=== PATIENT | male | born 1955 | race Caucasian/White ===

== ENCOUNTER 2016-05-21 15:36 | Emergency (ER) | payer MEDICAID ==
--- NOTE | 2016-05-21 15:57 | EDPHY ---
H & P Time Seen by Provider: 05/21/16 15:49 HPI/ROS: Chief complaint. Cough, shortness of breath HPI. 61-year-old male with cough shortness of breath and subjective fever for 1 week. Nonproductive cough. He has a history of COPD and this is somewhat similar. The patient also complains of abscess on his left upper arm as well as his right thigh that have also been present for several days. The 1 on the right thigh is now draining. Otherwise denies chest pain. Patient is IV drug abuser ROS Constitutional. Subjective fever Eyes. no problems with vision ENT. no sore throat, no nasal drainage Cardiovascular. no chest pain Respiratory. Cough and shortness of breath Abdominal. no abdominal pain, no nausea/vomiting, no diarrhea . no problems urinating MS. no calf pain/swelling, no neck/back pain, no joint pain Skin. Skin abscess Lymph. no swollen glands Neuro. no headache, no dizziness, no difficulty walking or with speech Past Medical/Surgical History: Past medical history significant for PE, schizoaffective disorder, COPD with chronic O2, anxiety, hepatitis-C, alcoholism Social History: Single, daily smoker, no alcohol Smoking Status: Light smoker Physical Exam: General Appearance: Alert well-developed male moderate distress vital signs are stable Eyes: Pupils equal and round no pallor or injection. ENT, Mouth: Mucous membranes are moist. Respiratory: Mild inspiratory expiratory rhonchi Cardiovascular: Regular rate and rhythm with tachycardia Gastrointestinal: Abdomen is soft and nontender, no masses, bowel sounds normal. Neurological: Awake and alert, sensory and motor exams grossly normal. Skin: Warm and dry, no rashes. Musculoskeletal: Neck is supple nontender. Extremities abscess on the left upper arm Abscess on the right thigh with surrounding erythema and it is draining purulent discharge Psychiatric: Patient is oriented X 3, there is no agitation. Constitutional: Initial Vital Signs Temperature (C) 36.6 C 05/21/16 15:40 Heart Rate 110 H 05/21/16 15:40 Respiratory Rate 20 05/21/16 15:40 Blood Pressure 138/84 H 05/21/16 15:40 O2 Sat (%) 98 05/21/16 15:40 O2 Delivery Mode Nasal Cannula O2 (L/minute) 4.5 Allergies/Adverse Reactions: No Known Allergies Allergy (Verified 01/17/16 16:48) Home Medications: Medication Instructions Recorded Albuterol [Proventil Inhaler HFA 1 - 2 puffs IH Q4H PRN 11/09/15 (*)] Fluticasone/Salmeter 250/50Mcg 1 puffs IH BID 11/09/15 [Advair 250/50 (*)] Furosemide [Lasix 20 MG (*)] 20 mg PO DAILY 11/09/15 QUEtiapine FUMARATE [Seroquel 200 400 mg PO BID 11/09/15 mg (*)] clonazePAM [Klonopin (*)] 0.5 mg PO BID 11/09/15 Acetaminophen [Tylenol 325mg (*)] 650 mg PO Q6 PRN #0 tab 11/19/15 LORazepam [Ativan (*)] 0.5 mg PO Q6 PRN #10 tab 11/19/15 Multivitamins [Multivitamin (*)] 1 each PO DAILY #0 tab 11/19/15 traZODone [traZODONE 100MG (*)] 200 mg PO HS #20 tab 11/19/15 Acetaminophen [Tylenol 325mg (*)] 650 mg PO Q4 PRN #0 tab 12/12/15 Pantoprazole Sodium [Protonix 40mg 40 mg PO BID #30 tab 12/12/15 (*)] chlordiazePOXIDE [Librium 10 mg 10 mg PO TID #6 cap 12/12/15 (RX)] Sulfamethox/Tmp 800/160 mg 1 tab PO BID #14 tab 05/21/16 [Bactrim Ds] clonIDINE [Catapres (*)] 0.2 mg PO TID #10 tab 05/21/16 Medical Decision Making - Diagnostics Imaging: Chest x-ray shows COPD but no evidence of pneumonia Procedures: IV normal saline, monitor I and D of abscess in the left upper arm. Sterile prep. 1% lidocaine with epinephrine infiltrated. Incision and drainage by me with a 11. Blade. The cavity is probed to break up loculations and irrigated with saline. Patient tolerates the procedure well ED Course/Re-evaluation: Due to multiple intravenous access attempts that were unsuccessful the patient is sent for a PICC line Re-evaluation at 7:00 p.m. patient is stable. He and I discussed imaging and lab results. We discussed treatment plan including criteria for return importance of follow-up and further evaluation. He expresses understanding and agreement. The patient asked if we had any medication to help with opiate withdrawal. I told him I would prescribed medication. I also asked him to call [facility] tomorrow to arrange follow-up in the next 2-3 days Differential Diagnosis: Skin abscesses secondary to IVDA. I considered pneumonia, sepsis. The patient has been ill for several days is out of the window for any treatment for influenza - Data Points Laboratory Results: Laboratory Results 05/21/16 18:00 05/21/16 18:00 05/21/16 18:00 WBC 10.72 H 10^3/uL (3.80-9.50) RBC 5.00 10^6/uL (4.40-6.38) Hgb 16.2 g/dL (13.7-17.5) Hct 47.4 % (40.0-51.0) MCV 94.8 fL (81.5-99.8) MCH 32.4 pg (27.9-34.1) MCHC 34.2 g/dL (32.4-36.7) RDW 12.2 % (11.5-15.2) Plt Count 195 10^3/uL (150-400) MPV 10.9 fL (8.7-11.7) Neut % (Auto) 77.5 H % (39.3-74.2) Lymph % (Auto) 13.7 L % (15.0-45.0) [place] % (Auto) 7.8 % (4.5-13.0) Eos % (Auto) 0.4 L % (0.6-7.6) Baso % (Auto) 0.3 % (0.3-1.7) Nucleat RBC Rel Count 0.0 % (0.0-0.2) Absolute Neuts (auto) 8.31 H 10^3/uL (1.70-6.50) Absolute Lymphs (auto) 1.47 10^3/uL (1.00-3.00) Absolute Monos (auto) 0.84 H 10^3/uL (0.30-0.80) Absolute Eos (auto) 0.04 10^3/uL (0.03-0.40) Absolute Basos (auto) 0.03 10^3/uL (0.02-0.10) Absolute Nucleated RBC 0.00 10^3/uL (0-0.01) Immature Gran % 0.3 % (0.0-1.1) Immature Gran # 0.03 10^3/uL (0.00-0.10) PT 13.5 SEC (12.0-15.0) INR 1.04 (0.83-1.16) D-Dimer < 0.27 ug/mLFEU (0.00-0.50) Sodium 134 mEq/L (134-144) Potassium 3.8 mEq/L (3.5-5.2) Chloride 99 mEq/L (97-110) Carbon Dioxide 30 mEq/l (22-31) Anion Gap 5 mEq/L (8-16) BUN 12 mg/dL (7-23) Creatinine 0.8 mg/dL (0.7-1.3) Estimated GFR > 60 Glucose 113 H mg/dL (70-100) Calcium 8.5 mg/dL (8.5-10.4) Troponin I < 0.012 ng/mL (0-0.034) NT-Pro-B Natriuret Pep 214 H pg/mL (0-125) Medications Given: Discontinued Medications Albuterol/Ipratropium (Duoneb) 3 ml IH EDNOW ONE Stop: 05/21/16 16:06 Last Admin: 05/21/16 16:16 Dose: 3 ml Departure - Departure Disposition: Home, Routine, Self-Care Clinical Impression: Abscess, COPD (chronic obstructive pulmonary disease) Condition: Good Instructions: Abscess (ED) Additional Instructions: Keep abscess areas clean and dry. You may shower. Clonidine to help with opiate withdrawal but it is important that you do not use further opiates. Bactrim as antibiotic. Return for worsening symptoms. Recheck at [facility] in 2-3 days without fail. Call them tomorrow to arrange follow-up appointment Referrals: Melissa Villareal [Primary Care Provider] - As per Instructions [facility] [Outside] - 1-2 days without fail Prescriptions: Sulfamethox/Tmp 800/160 mg [Bactrim Ds] 1 tab PO BID #14 tab clonIDINE [Catapres (*)] 0.2 mg PO TID #10 tab
[2016-05-21] MEDS ORDERED: IPRATROPIUM/ALBUTEROL 3 ML DEYVIAL IH ONE (16:05)
--- NOTE | 2016-05-21 16:50 | CPEKG ---
Heart Rate: 101 RR Interval: 594 P-R Interval: 168 QRSD Interval: 92 QT Interval: 336 QTC Interval: 436 P [place]: 71 QRS [place]: 146 T Wave [place]: 55 EKG Severity - ABNORMAL ECG - EKG Impression: SINUS TACHYCARDIA EKG Impression: LEFT POSTERIOR FASCICULAR BLOCK EKG Impression: LOW VOLTAGE WITH RIGHT AXIS DEVIATION Electronically Signed By: Noah Tan 21-May-2016 20:52:48
[2016-05-21] MEDS ORDERED: ALTEPLASE 2 MG VIAL IVP PRN (16:51)
[2016-05-21 18:11] LABS: % IMMATURE GRANULYOCYTES 0.3 % (0.0-1.1); ABSOLUTE IMMATURE GRANULOCYTES 0.03 10^3/uL (0.00-0.10); ADD DIFF? NO; ADD MORPH? NO; ADD SCAN? NO; ATYPICAL LYMPHOCYTE FLAG 0 (0-99); FRAGMENT RBC FLAG 0 (0-99); HEMATOCRIT 47.4 % (40.0-51.0); HEMOGLOBIN 16.2 g/dL (13.7-17.5); LEFT SHIFT FLG 0 (0-99); LIPEMIA HEMOLYSIS FLAG 90 (0-99); MEAN CELL HEMOGLOBIN 32.4 pg (27.9-34.1); MEAN CELL HEMOGLOBIN CONCENTR. 34.2 g/dL (32.4-36.7); MEAN CELL VOLUME 94.8 fL (81.5-99.8); MEAN PLATELET VOLUME 10.9 fL (8.7-11.7); PLATELET CLUMPS FLAG 0 (0-99); PLATELET COUNT 195 10^3/uL (150-400); RED CELL DISTRIBUTION WIDTH 12.2 % (11.5-15.2)
[2016-05-21 18:18] LABS: INR 1.04 (0.83-1.16); PROTIME(PATIENT) 13.5 SEC (12.0-15.0)
--- NOTE | 2016-05-21 18:23 | IR ---
Imaging-Guided Peripherally Inserted Central Catheter History: Central line needed for multiple medications. This is patient's third central line. Prophylactic Antibiotic: Cefazolin was not ordered and administered for antimicrobial prophylaxis be cause it was not medically necessary for this procedure. VTE Prophylaxis: There is not an order for VTE prophylaxis to be given within 24 hours after procedu re end time because it was not medically necessary for this procedure. Crosscutting Measure: Patient's current list of medications including all known prescriptions, over- the-counters, herbals, and vitamin/mineral/dietary supplements are reviewed. Medications' name, dosa ge, frequency, and route of administration are confirmed. Technique: Following informed consent, the right arm was prepped and draped in sterile fashion. 1% X ylocaine was used for local anesthetic. All elements of maximal sterile barrier technique including cap, mask, sterile gown, sterile gloves, large sterile sheet, hand hygiene, and 2% chlorhexidine for cutaneous antisepsis, followed. Ultrasound evaluation of potential access site was performed. After successfully identifying a patent vessel, ultrasound guidance was used to puncture the vein. A permanent recording was created for the patient's record. Ultrasound transducer was placed in sterile sleeve and used for real-time imaging guidance over steri le gel to enter the brachial vein. 0.018 measuring wire was passed centrally under fluoroscopic contr ol. A skin salvador with scalpel blade was followed by removing the access needle. A 4 Surinamese peel-away s stuart was followed by a 4 Surinamese single-lumen central catheter, trimmed to 42 cm length. The tip of t he catheter was positioned centrally and the guidewire removed. A single fluoroscopic spot image was obtained in inspiration. The hub of the catheter was fixed to the skin using a sterile StatLock adhes gisselle device, and a sterile dressing was applied. The catheter was irrigated. Findings: The tip of the central catheter terminates at the junction of the superior vena cava and t he right atrium. Fluoroscopy: 0.2 minutes, 1 image. Impression: 4 [place]inamese single lumen peripherally inserted central catheter is ready to use. Please note that this patient does not have any other veins in the right upper extremity other than t his brachial vein at this time. Multiple basilic branches were accessed at various levels, without ramírez ccess. This brachial vein is directly behind the nerve sheath complex and was difficult to get around . If at all possible, this central line should be left in place.
[2016-05-21 18:27] LABS: ANION GAP 5 mEq/L (8-16); CALCIUM 8.5 mg/dL (8.5-10.4); CARBON DIOXIDE 30 mEq/l (22-31); CHLORIDE 99 mEq/L (97-110); CREATININE 0.8 mg/dL (0.7-1.3); GLOMERULAR FILTRATION RATE > 60; GLUCOSE 113 mg/dL (70-100); POTASSIUM 3.8 mEq/L (3.5-5.2); SODIUM 134 mEq/L (134-144)
[2016-05-21 18:37] LABS: TROPONIN I < 0.012 ng/mL (0-0.034)
--- NOTE | 2016-05-21 18:37 | DX ---
PA and lateral chest History: Dyspnea. Comparison: AP and lateral chest January 17, 2016, CT angiogram chest November 13, 2015. Findings: Right PICC tip is at the cavoatrial junction. There is stable bibasilar scarring/atelectasi s, left greater than right. There is no pneumothorax or pleural effusion. Heart size is normal. The b ones are stable, including a mild compression fracture at T12. Impression: Stable bibasilar scarring/atelectasis with no acute findings.
[2016-05-21 18:42] VITALS: BP 122/73; TEMP 98.1
[2016-05-21 19:32] VITALS: PULSE 98; RESP 20; O2SAT 95
== END 2016-05-21 19:38 | disposition home or self-care (01) ==
PROC: 0J9F0ZZ Drainage of Left Upper Arm Subcutaneous Tissue and Fascia, Open Approach (ICD-10-PCS; principal; 2016-05-21)
PROC: 02HV33Z Insertion of Infusion Device into Superior Vena Cava, Percutaneous Approach (ICD-10-PCS; 2016-05-21)
DX: J44.9 Chronic obstructive pulmonary disease, unspecified (principal); L02.414 Cutaneous abscess of left upper limb; F17.200 Nicotine dependence, unspecified, uncomplicated
CPT/HCPCS: 10061; 71020; 77001; 93005; 99285; C1751

== ENCOUNTER 2016-06-23 16:52 | Emergency (ER) | payer MEDICAID ==
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
[2016-06-23 17:16] VITALS: BP 147/101; PULSE 75; RESP 24; TEMP 97.7; O2SAT 93
--- NOTE | 2016-06-23 17:28 | CPEKG ---
Heart Rate: 81 RR Interval: 741 P-R Interval: 164 QRSD Interval: 92 QT Interval: 384 QTC Interval: 446 P [place]: 74 QRS [place]: 130 T Wave [place]: 35 EKG Severity - ABNORMAL ECG - EKG Impression: SINUS RHYTHM EKG Impression: LEFT POSTERIOR FASCICULAR BLOCK EKG Impression: PROBABLE INFERIOR INFARCT, OLD Preliminary Awaiting MD Review
== END 2016-06-23 18:54 | disposition home or self-care (01) ==
LOC: CED 16:52
DX: M19.012 Primary osteoarthritis, left shoulder (principal); J44.9 Chronic obstructive pulmonary disease, unspecified; F17.210 Nicotine dependence, cigarettes, uncomplicated; B19.20 Unspecified viral hepatitis C without hepatic coma; Z86.711 Personal history of pulmonary embolism
CPT/HCPCS: 73030-PO; 93010-PO; 99214-PO; G0463-PO

== ENCOUNTER 2017-06-30 20:58 | Emergency (ER) | payer MEDICAID ==
[2017-06-30 21:25] VITALS: TEMP 98.1
--- NOTE | 2017-06-30 21:47 | CPEKG ---
Heart Rate: 78 RR Interval: 769 P-R Interval: 168 QRSD Interval: 98 QT Interval: 396 QTC Interval: 452 P [place]: 54 QRS [place]: 197 T Wave [place]: 43 EKG Severity - OTHERWISE NORMAL ECG - EKG Impression: SINUS RHYTHM EKG Impression: RIGHT AXIS DEVIATION Electronically Signed By: Malcolm Bran 01-Jul-2017 05:06:07
[2017-06-30 22:15] VITALS: RESP 16
[2017-06-30 22:26] LABS: PLATELET COUNT 151 10^3/uL (150-400)
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
[2017-06-30] MEDS ORDERED: SULFAMET/TMP DS PREPACK#2 BTL TAKEHOME ONE (23:14)
[2017-07-01] VITALS: BP 152/89; PULSE 89; O2SAT 95
== END 2017-06-30 23:58 | disposition home or self-care (01) ==
DX: R06.00 Dyspnea, unspecified (principal); F19.10 Other psychoactive substance abuse, uncomplicated; L02.414 Cutaneous abscess of left upper limb; J44.9 Chronic obstructive pulmonary disease, unspecified; F17.200 Nicotine dependence, unspecified, uncomplicated

== ENCOUNTER 2017-12-17 09:07 | Emergency (ER) | payer MEDICAID ==
[2017-12-17 09:18] VITALS: BP 133/88
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
== END 2017-12-17 09:33 | disposition home or self-care (01) ==
LOC: CED 09:07
DX: S60.551A Superficial foreign body of right hand, initial encounter (principal); F17.200 Nicotine dependence, unspecified, uncomplicated; W26.8XXA Contact with other sharp object(s), not elsewhere classified, initial encounter; Y92.015 Private garage of single-family (private) house as the place of occurrence of the external cause

== ENCOUNTER 2018-01-23 21:45 | Emergency (ER) | payer MEDICAID ==
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
[2018-01-23] MEDS ORDERED: methylPREDNISolone SOD SUCC 125 MG/2 ML VIAL IVP ONE (22:47)
[2018-01-23] MEDS ORDERED: FUROSEMIDE 40 MG/4 ML VIAL IVP ONE (22:47)
[2018-01-23] MEDS ORDERED: IPRATROPIUM/ALBUTEROL 3 ML DEYVIAL IH ONE (22:47)
[2018-01-23 23:32] LABS: PLATELET COUNT 136 10^3/uL (150-400)
[2018-01-24] MEDS ORDERED: ALBUTEROL INH PREPACK MDI TAKEHOME ONE (01:47)
[2018-01-24 02:37] VITALS: BP 119/66
--- NOTE | 2018-01-24 06:11 | CPEKG ---
Test Reason : OPEN Blood Pressure : / mmHG Vent. Rate : 084 BPM Atrial Rate : 085 BPM P-R Int : 160 ms QRS Dur : 099 ms QT Int : 362 ms P-R-T Axes : 063 220 046 degrees QTc Int : 428 ms Sinus rhythm Markedly posterior QRS axis Low voltage, extremity leads Confirmed by Mercy Villafuerte ([id number]) on 01/24/2018 6:11:31 AM Referred By: Confirmed By:Mercy Villafuerte
== END 2018-01-24 02:37 | disposition home or self-care (01) ==
DX: J44.9 Chronic obstructive pulmonary disease, unspecified (principal); I50.9 Heart failure, unspecified; F17.200 Nicotine dependence, unspecified, uncomplicated
CPT/HCPCS: 84484-PO; 96374; J1940; J2930

== ENCOUNTER 2018-09-27 23:29 | Emergency (ER) | payer MEDICAID | END 2018-09-28 00:25 | disposition home or self-care (01) | LOC: CED 23:29 ==

== ENCOUNTER 2018-10-14 01:53 | Emergency (ER) | payer MEDICAID | END 2018-10-14 02:30 | disposition home or self-care (01) | LOC: CED 01:53 ==